=== PATIENT | female | born 2005 | race Caucasian/White ===

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

== ENCOUNTER 2024-02-17 03:45 | Emergency (ER) | payer OTHER ==
[~2024-02-17] VITALS: Ht 154.9 cm; Wt 66.2 kg
[2024-02-17 05:48] VITALS: BP 99/67; PULSE 95; RESP 16; TEMP 98.6; O2SAT 99
[2024-02-17] MEDS ORDERED: CETI10SG1 PO (06:28)
[2024-02-17] MEDS ORDERED: BENZ-300 PO (06:28)
== END 2024-02-17 07:28 | disposition home or self-care (01) ==
LOC: MED 03:45
DX: J30.9 Allergic rhinitis, unspecified (principal); Z88.0 Allergy status to penicillin; Z79.899 Other long term (current) drug therapy
CPT/HCPCS: 99282